=== PATIENT | female | born 1970 | race African-American/Black ===

== ENCOUNTER 2023-09-18 19:06 | Emergency (ER) | payer SELFPAY ==
[~2023-09-18] VITALS: Ht 160 cm; Wt 140.6 kg
[2023-09-18 19:17] VITALS: BP 132/90; TEMP 98.5; O2SAT 99
== END 2023-09-18 19:52 | disposition left against medical advice (07) ==
LOC: ER 19:09
DX: R07.0 Pain in throat (principal); Z53.21 Procedure and treatment not carried out due to patient leaving prior to being seen by health care provider